=== PATIENT | female | born 1980 | race African-American/Black ===

== ENCOUNTER 2018-06-09 10:44 | Emergency (ER) | payer SELFPAY ==
[~2018-06-09] VITALS: Ht 185.4 cm; Wt 108.4 kg
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
[2018-06-09] MEDS: HYDROMORPHONE INJ 2 MG/ML DISP.SYRIN IM ONE ×2 (11:11→11:50)
[2018-06-09] MEDS ORDERED: HYDROMORPHONE 1 MG/1 ML DISP.SYRIN ONE (11:20)
[2018-06-09 11:41] LABS: BASOPHILS % (AUTO) 0.6 % (0.0-2.0); EOSINOPHILS % (AUTO) 1.6 % (0.0-6.0); HEMATOCRIT 31 % (33-45); HEMOGLOBIN 9.2 g/dL (11.5-14.8); LYMPHOCYTES # (AUTO) 1.1 /CMM (0.8-4.8); MEAN CORPUSCULAR HGB CONC 30 g/dl (31.0-36.0); MEAN CORPUSCULAR VOLUME 68 fL (82-100); MONOCYTES # (AUTO) 0.4 /CMM (0.1-1.30); MONOCYTES % (AUTO) 9.2 % (2.0-12.0); NEUTROPHILS # (AUTO) 2.5 /CMM (1.8-8.9); NEUTROPHILS % (AUTO) 60.6 % (43.0-81.0); PLATELET COUNT (AUTO) 153 /CMM (150-450); RED BLOOD CELL COUNT(AUTO) 4.57 MIL/uL (4.0-5.2); WHITE BLOOD COUNT (AUTO) 4.1 K/uL (4.3-11.0)
[2018-06-09 11:51] LABS: CALCIUM, SERUM 8.9 mg/dL (8.5-10.1); CREATININE 0.8 mg/dL (0.6-1.3); POTASSIUM 3.6 mmol/L (3.5-5.1)
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
[2018-06-09 12:40] LABS: EOSINOPHILS % (MANUAL) 1 % (0-4); LYMPHOCYTES % (MANUAL) 31 % (16-48); MONOCYTES % (MANUAL) 7 % (0-11.0); NEUTROPHILS % (MANUAL) 61 (42-76)
--- NOTE | 2018-06-09 13:06 | NUR ---
OFFICER MOHAMUD [id number] CAME AND INTERVIEW PT REGARDING PT CLAIM. PER OFFICER TO HAVE PT EVALUATED BY OUR PSYCH CLINICIAN
--- NOTE | 2018-06-09 13:51 | NUR ---
Patient discharged to home in stable condition. Written and verbal after care instructions given. Patient verbalizes understanding of instruction.
[2018-06-09 13:52] VITALS: BP 131/65
[2018-06-09] MEDS ORDERED: HYDROMORPHONE 1 MG/1 ML DISP.SYRIN IM ONE (14:00)
== END 2018-06-09 13:53 | disposition home or self-care (01) ==
LOC: ER 10:45
DX: D57.1 Sickle-cell disease without crisis (principal); I27.20 Pulmonary hypertension, unspecified; E11.9 Type 2 diabetes mellitus without complications; Z86.73 Personal history of transient ischemic attack (TIA), and cerebral infarction without residual deficits
CPT/HCPCS: 36415; 80048; 84703; 85025; 85045; 96372; 99283; A4606; J1170; Z7610

== ENCOUNTER 2018-11-15 10:24 | Emergency (ER) | payer MEDICAID ==
[~2018-11-15] VITALS: Ht 185.4 cm; Wt 99.8 kg
[2018-11-15 11:16] VITALS: BP 126/69
--- NOTE | 2018-11-15 11:38 | NUR ---
DR LEMON AT BEDSIDE FOR EVAL
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
--- NOTE | 2018-11-15 11:43 | NUR ---
SHE THEN GOT UP THE BED AND STARTED WALKING TOWARDS THE DOOR YELLING, "I WILL SEE YOU IN COURT"
== END 2018-11-15 11:44 | disposition left against medical advice (07) ==
LOC: ER 10:26
DX: M79.18 Myalgia, other site (principal); I27.20 Pulmonary hypertension, unspecified; E11.9 Type 2 diabetes mellitus without complications; Z86.73 Personal history of transient ischemic attack (TIA), and cerebral infarction without residual deficits

== ENCOUNTER 2019-03-01 13:38 | Emergency (ER) | payer MEDICAID ==
[~2019-03-01] VITALS: Ht 175.3 cm; Wt 111.1 kg
[2019-03-01] MEDS ORDERED: ALTEPLASE 100 MG/VIAL VIAL IV ONE ×3 (13:41→15:30)
--- NOTE | 2019-03-01 13:45 | NUR ---
PT CAME TO THE ED C/O WEAKNESS. PT WAS AAOX4, BIZARRE, VSS, BREATHING EVEN AND UNLABORED W/ NAD. PT CONNECTED TO THE MONITOR
--- NOTE | 2019-03-01 13:52 | NUR ---
BLOOD DRAWN. SENT TO LAB. PT REFUSED IV.
[2019-03-01] MEDS ORDERED: OLANZAPINE 5 MG TABLET ONE (13:57)
[2019-03-01] MEDS ORDERED: OLANZAPINE 5 MG TABLET PO ONE (14:00)
[2019-03-01 14:12] LABS: EOSINOPHILS % (AUTO) 2.3 % (0.0-6.0); HEMATOCRIT 34 % (33-45); HEMOGLOBIN 10.3 g/dL (11.5-14.8); LYMPHOCYTES # (AUTO) 0.9 /CMM (0.8-4.8); LYMPHOCYTES % (AUTO) 23.3 % (20.0-44.0); MEAN CORPUSCULAR HGB CONC 31 g/dl (31.0-36.0); MEAN CORPUSCULAR VOLUME 68 fL (82-100); MONOCYTES # (AUTO) 0.4 /CMM (0.1-1.30); MONOCYTES % (AUTO) 10.9 % (2.0-12.0); NEUTROPHILS # (AUTO) 2.4 /CMM (1.8-8.9); NEUTROPHILS % (AUTO) 62.5 % (43.0-81.0); PLATELET COUNT (AUTO) 209 /CMM (150-450); RED BLOOD CELL COUNT(AUTO) 4.96 MIL/uL (4.0-5.2); WHITE BLOOD COUNT (AUTO) 3.8 K/uL (4.3-11.0)
--- NOTE | 2019-03-01 14:12 | NUR ---
AT BEDSIDE FOR EVAL
[2019-03-01 14:13] LABS: APPEARANCE,URINE Slightly Cloudy (CLEAR); BILIRUBIN,URINE Negative (NEGATIVE); BLOOD, URINE Negative Ery/uL (NEGATIVE); COLOR,URINE Yellow (YELLOW); KETONES,URINE Negative (NEGATIVE); LEUKOCYTE ESTERASE ,URINE Small (NEGATIVE); NITRITE, URINE Negative (NEGATIVE); PH,URINE 5.5 (5.0-8.0); PROTEIN,URINE Negative (NEGATIVE); UGLUCOSE Negative (NEGATIVE); UROBILINOGEN,URINE 0.2 EU/dL (0.2)
--- NOTE | 2019-03-01 14:15 | NUR ---
CODE STROKE ACTIVATED
[2019-03-01] MEDS ORDERED: IOHEXOL-350 100 ML VIAL IV ONE (14:17)
[2019-03-01] MEDS ORDERED: IV NS 0.9% 250 ML IV ONE (14:17)
[2019-03-01 14:18] LABS: CALCIUM, SERUM 8.5 mg/dL (8.5-10.1); CARBON DIOXIDE 24 mmol/L (21-32); CHLORIDE 104 mmol/L (98-107); CREATININE 0.9 mg/dL (0.6-1.3); GLUCOSE 93 mg/dL (74-106); POTASSIUM 3.5 mmol/L (3.5-5.1); SODIUM SERUM 135 mmol/L (136-145); UREA NITROGEN, BLOOD 15 mg/dL (7-18)
[2019-03-01] MEDS ORDERED: CT SWABBABLE VALVE TRANS SET 1 EA INFUS.SET MC ONE (14:18)
--- NOTE | 2019-03-01 14:18 | NUR ---
TELE NEURO ACTIVATED
--- NOTE | 2019-03-01 14:19 | NUR ---
PT SENT TO CT
[2019-03-01 14:21] LABS: BACTERIA,URINE Rare /HPF (None Seen); RBC,URINE 0-3 /HPF (0-2); SQUAMOUS EPITHELIAL CELL,UR Few /HPF (None Seen)
[2019-03-01 14:24] LABS: ACETAMINOPHEN 0 ug/ml (10-30); ALANINE AMINOTRANSFERASE 15 U/L (12-78); ALBUMIN 3.5 g/dL (3.4-5.0); ALCOHOL, BLOOD < 3 mg/dL (0-0); ALKALINE PHOSPHATASE 68 U/L (46-116); ASPARTATE AMINOTRANSFERASE 17 U/L (15-37); BILIRUBIN,DIRECT 0.1 mg/dL (0.0-0.2); BILIRUBIN,TOTAL 0.4 mg/dL (0.2-1.0); TOTAL PROTEIN, SERUM 7.7 g/dL (6.4-8.2)
--- NOTE | 2019-03-01 14:26 | NUR ---
PT CAME BACK FROM CT
[2019-03-01] MEDS ORDERED: IV NS 0.9% 500 ML BAG IV ONE (14:30)
[2019-03-01 14:41] LABS: CHOLESTEROL 141 mg/dL (<200); HDL CHOLESTEROL 59 mg/dL (40-60); LDL 71 mg/dL (0-99); TRIGLYCERIDES 90 mg/dL (30-150)
--- NOTE | 2019-03-01 14:45 | NUR ---
MIDLINE ESTABLISHED BY NATALIA SALAZAR
--- NOTE | 2019-03-01 15:00 | NUR ---
TPA BOLUS STARTED ORDERED
--- NOTE | 2019-03-01 15:01 | NUR ---
[facility] NOTIFIED,SPOKE WITH TRANG FISHER
[2019-03-01 15:08] LABS: EOSINOPHILS % (MANUAL) 2 % (0-4); LYMPHOCYTES % (MANUAL) 24 % (16-48); MONOCYTES % (MANUAL) 8 % (0-11.0); NEUTROPHILS % (MANUAL) 66 (42-76)
--- NOTE | 2019-03-01 15:15 | NUR ---
PT ALERT AND AWAKE, RESPONSIVE, NO CHANGES IN LOC, BREATHING EVEN AND UNLABORED W/ NAD, NO SIGNS OF BLEEDING NOTED, VSS.
--- NOTE | 2019-03-01 15:20 | NUR ---
REPORT GIVEN TO NATALIA JACSKON. [facility]
[2019-03-01 15:30] VITALS: BP 132/61
--- NOTE | 2019-03-01 15:30 | NUR ---
PT ALERT AND AWAKE, RESPONSIVE, NO CHANGES IN LOC, BREATHING EVEN AND UNLABORED W/ NAD, NO SIGNS OF BLEEDING NOTED, VSS.
--- NOTE | 2019-03-01 15:38 | NUR ---
PT WAS TRANSPORTED AT [id number]
== END 2019-03-01 15:56 | disposition short-term general hospital (02) ==
LOC: ER 13:40
DX: I63.9 Cerebral infarction, unspecified (principal); I10 Essential (primary) hypertension; F29 Unspecified psychosis not due to a substance or known physiological condition; E11.9 Type 2 diabetes mellitus without complications; R53.1 Weakness
CPT/HCPCS: 36415; 70450; 70496; 70498; 71045; 80048; 80061; 80076; 80305; 80307; 80329; 81001; 82962; 84484; 85025; 85730; 93005; 96374; 96376; 99291; 99292; A4216; G0480; J2997; J7040; J7050; Q9967; 36569; 81000-TC